=== PATIENT | female | born 1965 | race Two or more races ===

== ENCOUNTER → 2017-04-13 | Outpatient (CLI) | payer BC ==
[2016-08-21 23:26] VITALS: BP 138/61
[~2017-04-13] MED LIST: BENZ100C PO; BUDE10.2 IH; DILT120C97 PO; DULO60CA6 PO; FENO134C PO; FEXO1TAB31 PO; HYDR12.58 PO; LEVO150T5 PO; LIDO700A27 TP; METF500T9 PO; OMEP40CA5 PO; PRED50TA PO; PROAIR HFA8.5 GM IH; PROAIR HFA8.5 GM INH
--- NOTE | 2017-04-13 08:51 | RAD ---
DATE: 04/13/2017 EXAM: DIGITAL DIAGNOSTIC LT HISTORY: Follow-up calcifications COMPARISON: Screening examination 09/08/2016 This study was interpreted with the benefit of Computerized Aided Detection (CAD). FINDINGS: Breast Density: SCATTERED The breast parenchyma shows scattered fibroglandular densities. Breast parenchyma level B. Punctate calcifications in the upper and outer left breast appear stable. There are benign appearance. IMPRESSION: Benign appearing calcifications. Follow-up bilateral mammography suggested 09/08/2017 BI-RADS CATEGORY: 2 BENIGN FINDING(S) RECOMMENDED FOLLOW-UP: 6M 6 MONTH FOLLOW-UP PQRS compliance statement: Patient information was entered into a reminder system with a target due date 09/08/2017 for the next mammogram. Mammography is a sensitive method for finding small breast cancers, but it does not detect them all and is not a substitute for careful clinical examination. A negative mammogram does not negate a clinically suspicious finding and should not result in delay in biopsying a clinically suspicious abnormality. "Our facility is accredited by the [employer] Mammography [employer]."
== END | disposition home or self-care (01) ==
LOC: MAMMO 08:32
PROVIDERS: ATTEND Family Medicine
DX: R92.8 Other abnormal and inconclusive findings on diagnostic imaging of breast (principal)
CPT/HCPCS: G0206; 77065

== ENCOUNTER → 2017-10-12 | Outpatient (CLI) | payer BC ==
[2016-08-21 23:26] VITALS: BP 138/61
[~2017-10-12] MED LIST changes: +DILT120C80 PO; -DILT120C97 PO
--- NOTE | 2017-10-12 11:08 | RAD ---
DATE: 10/12/2017 EXAM: DIGITAL SCREEN BILAT W/CAD HISTORY: Routine screening COMPARISON: 04/13/2017, 09/22/2016, 09/08/2016, 09/03/2015 This study was interpreted with the benefit of Computerized Aided Detection (CAD). The breast parenchyma shows scattered fibroglandular densities. Breast parenchyma level B. FINDINGS: The breasts are asymmetric with the left breast being smaller than the right. A 13 mm slightly lobulated nodule is now identified at the 2-3 o'clock location in the left breast. This density has increased in size since previous studies. There are microcalcifications in this region which appear unchanged. A nearby density seen on the cc view raises the possibility of a satellite nodule. There are additional unchanged small smooth benign-appearing nodules located more posterolaterally in the left breast. There are more extensive heterogeneous fibroglandular shadows in the right breast. No new or enlarging right breast density is seen. IMPRESSION: Suspicious left breast nodule. Diagnostic mammograms to include spot compression and straight mediolateral views are suggested as well as left breast ultrasound. BI-RADS CATEGORY: 0 INCOMPLETE: NEEDS ADDITIONAL IMAGING EVALUATION AND/OR PRIOR MAMMOGRAMS FOR COMPARISON. RECOMMENDED FOLLOW-UP: ADD ADDITIONAL IMAGING PQRS compliance statement: Patient information was entered into a reminder system with a target due date for the next mammogram. Mammography is a sensitive method for finding small breast cancers, but it does not detect them all and is not a substitute for careful clinical examination. A negative mammogram does not negate a clinically suspicious finding and should not result in delay in biopsying a clinically suspicious abnormality. "Our facility is accredited by the [employer] Mammography [employer]." BI-RADS 1 -- negative findings (within normal)
== END | disposition home or self-care (01) ==
LOC: MAMMO 10:18
PROVIDERS: ATTEND Family Medicine
DX: Z12.31 Encounter for screening mammogram for malignant neoplasm of breast (principal)
CPT/HCPCS: G0202; 77067

== ENCOUNTER → 2017-10-21 | Outpatient (CLI) | payer BC ==
[2016-08-21 23:26] VITALS: BP 138/61
--- NOTE | 2017-10-21 12:14 | RAD ---
DATE: October 21, 2017 EXAM: DIGITAL DIAGNOSTIC LT, BREAST LEFT HISTORY: Abnormal screening study. COMPARISON: Priors back to August 31, 2014 TECHNIQUE: Compression CC and MLO views along with left ML view were obtained. Limited left breast ultrasound was performed. This study was interpreted with the benefit of Computerized Aided Detection (CAD). FINDINGS: The breast parenchyma demonstrates scattered fibroglandular densities, category B. The 2 masses in the left breast persist on compression views. On compression views, the posterior margin is obscured and mass is lobular. Ultrasound was then performed. There is a mass at the 2:00 position 2.5 cm from the nipple. This measures up to 12 mm in size. It has some internal color flow and is heterogeneous. It appears to distort a parenchymal band. Adjacent to this, there is a second smaller hypoechoic nodule with some color flow at the 1:00 position 3 cm from the nipple, 5 mm in size. Findings and recommendation of biopsy were discussed with the patient and the patient's daughter. They were also discussed with Alana at Dr. Reynolds's office at 1210 hours. IMPRESSION: Left breast mass for which ultrasound-guided biopsy is recommended. BI-RADS CATEGORY: 4 SUSPICIOUS ABNORMALITY-BIOPSY SHOULD BE CONSIDERED RECOMMENDED FOLLOW-UP: BIO BIOPSY RECOMMENDED PQRS compliance statement: Patient information was entered into a reminder system with a target due date for the next mammogram. Mammography is a sensitive method for finding small breast cancers, but it does not detect them all and is not a substitute for careful clinical examination. A negative mammogram does not negate a clinically suspicious finding and should not result in delay in biopsying a clinically suspicious abnormality. "Our facility is accredited by the [employer] Mammography Program."
== END | disposition home or self-care (01) ==
LOC: MAMMO 10:24
PROVIDERS: ATTEND Family Medicine
DX: N63.20 Unspecified lump in the left breast, unspecified quadrant (principal)
CPT/HCPCS: 76641; G0206; 77065